=== PATIENT | female | born 1940 | race Caucasian/White ===

== ENCOUNTER 2016-03-30 11:08 | Observation (INO) | payer MEDICARE, BC ==
[~2016-03-30] VITALS: Ht 162.6 cm; Wt 66.6 kg
[~2016-03-30 11:08] MED LIST: AGGRENOX ER 251 CER PO; ALDACTONE 25MG25 M1 PO; ALLEGRA 60MG TA60 MG PO; ANTIVERT 25MG25 MG PO; ASPIRIN E.C. 8181 MG PO; AVALIDE 12.5 MG1 TA1 PO; AVELOX; CALTRATE-600 W600 MG PO; CEFACLOR250 MG; CEFACLOR250 MG PO; CELEBREX 200MG200 MG PO; CLONAZEPAM PO; CORDARONE200 MG/TAB PO; COREG 3.123.125 MG/T PO; COUMADIN 1MG1 MG/TAB PO; COUMADIN 77.5 MG/TAB PO; COZAAR 50MG50 MG/TAB PO; COZAAR100 MG PO; FERROUS SU325 MG/TAB PO; FERROUS SULFATE65 MG PO; FLONASE NASAL S16 GM NS; FOLIC ACID 11 MG/TA1 PO; HALCION0.25 MG PO; HCTZ 25MG TAB25 MG PO; HCTZ 25MG25 MG PO; KLONOPIN 0.5MG0.5 MG PO; KLOR-CON M2020 MEQ PO; LASIX 20MG TABL20 MG PO; METHOTREXA2.5 MG/TAB PO; MUCINEX 60600 MG/TA1 PO; MUCINEX 60600 MG/TAB PO; MULTI VITAMINS1 TAB PO; NEXIUM 20MG20 MG; NEXIUM 40MG40 MG PO; NORCO 325 MG-51 TAB PO; NORMODYNE100 MG PO; PREDNISONE 2.52.5 MG PO; PROBIOTIC PO; REMICADE V100 MG/VIA IV; ROBITUSSIN A-C S1 M1 PO; SYNTHROID0.1 MG/TAB PO; SYNTHROID0.125 MG/T PO; TENORMIN 5050 MG/TAB PO; TRIAMC 0.025 80 TOP; TRIAMCINOLONE A15 G2 TP; XALATAN EYE DROPS OU; XANAX; XANAX 1MG1 MG PO; ZANTAC
[2016-03-30 13:13] LABS: HEMATOCRIT 32.4 % (37.0-47.0); HEMOGLOBIN 10.8 g/dl (12.5-16.0); MEAN CELL VOLUME 99 fl (80.0-100.0); MEAN CORPUSCULAR HEMOGLOBIN 33 pg (27.0-31.0); MEAN CORPUSCULAR HGB CONC 33 g/dl (33.0-37.0); MEAN PLATELET VOLUME 9.6 fl (7.4-10.4); PLATELET COUNT 155 K/mm3 (130-400); RED BLOOD COUNT 3.28 M/mm3 (4.10-5.30); REDCELL DISTRIBUTION WIDTH-CV 15.1 % (11.5-14.5); WHITE BLOOD COUNT 8.2 K/mm3 (4.8-10.8)
[2016-03-30 13:17] VITALS: BP 131/97; PULSE 105; TEMP 97
[2016-03-30 13:19] VITALS: BP 131/97; TEMP 97
[2016-03-30] MEDS ORDERED: LASIX 40MG TABL40 MG PO (13:23)
[2016-03-30] MEDS ORDERED: FENTANYL 25 MCG TD (13:30)
[2016-03-30 13:37] LABS: INR 4.9 (0.8-3.0); PROTHROMBIN TIME 57.4 SECONDS (9.7-12.8)
[2016-03-30] MEDS ORDERED: PREDNISONE10 MG PO (13:37)
[2016-03-30] MEDS ORDERED: VITAMIN D 50,1.25 MG PO (13:38)
[2016-03-30] MEDS ORDERED: COUMADIN 22.5 MG/TAB PO (13:39)
[2016-03-30] MEDS ORDERED: VALTREX 50500 MG/TAB PO (13:40)
[2016-03-30 13:45] LABS: ADD PATHOLOGY DIFF REVIEW NO
[2016-03-30 13:49] LABS: BAND 2 % (0-10); NEUTROPHILS 84 % (42.0-75.2); PLATELET ESTIMATE NORMAL (NORMAL); TOTAL CELLS COUNTED 100
[2016-03-30 15:23] LABS: ADJUSTED CALCIUM 9.4 mg/dL (8.4-10.2); ALBUMIN 3.2 gm/dL (3.5-5.0); BILIRUBIN,TOTAL 1.2 mg/dL (0.0-1.0); C-REACTIVE PROTEIN 1.5 mg/dL (0.0-0.9); CALCIUM 8.8 mg/dL (8.4-10.2); CREATININE, serum 0.92 mg/dL (0.52-1.25); POTASSIUM 4.3 mmol/L (3.4-5.0); TOTAL PROTEIN 6.2 gm/dL (6.4-8.2)
[2016-03-30 15:56] VITALS: BP 115/78; PULSE 113; TEMP 96.9
== END 2016-03-30 18:12 | disposition left against medical advice (07) ==
LOC: MEDICAL 11:08
PROVIDERS: Nurse Practitioner Family
DX: B02.8 Zoster with other complications (principal); Z79.01 Long term (current) use of anticoagulants; S22.089A Unspecified fracture of T11-T12 vertebra, initial encounter for closed fracture; S32.049A Unspecified fracture of fourth lumbar vertebra, initial encounter for closed fracture; W19.XXXA Unspecified fall, initial encounter; Z91.81 History of falling; I50.22 Chronic systolic (congestive) heart failure; I10 Essential (primary) hypertension; M06.9 Rheumatoid arthritis, unspecified; D63.8 Anemia in other chronic diseases classified elsewhere
CPT/HCPCS: 99222-AI; G0378; G0379; J1940; J3370; J7050

== ENCOUNTER 2016-04-08 12:33 | Inpatient (IN) | payer MEDICARE, BC ==
[~2016-04-08] VITALS: Ht 160 cm; Wt 59.6 kg
[~2016-04-08 12:33] MED LIST changes: +COUMADIN 22.5 MG/TAB PO; +FENTANYL 25 MCG TD; +LASIX 40MG TABL40 MG PO; +PREDNISONE10 MG PO; +VALTREX 50500 MG/TAB PO; +VITAMIN D 50,1.25 MG PO
[2016-04-08 13:35] LABS: ADJUSTED CALCIUM 9.7 mg/dL (8.4-10.2); ALBUMIN 3.3 gm/dL (3.5-5.0); BILIRUBIN,TOTAL 1.2 mg/dL (0.0-1.0); CALCIUM 9.1 mg/dL (8.4-10.2); CREATININE, serum 0.83 mg/dL (0.52-1.25); POTASSIUM 4.4 mmol/L (3.4-5.0); TOTAL PROTEIN 5.9 gm/dL (6.4-8.2)
[2016-04-08 13:55] LABS: PROTHROMBIN TIME 39.4 SECONDS (9.7-12.8)
[2016-04-08 13:58] LABS: PARTIAL THROMBOPLASTIN TIME 21.3 SECONDS (26.0-37.0)
[2016-04-08 14:02] LABS: MEAN CELL VOLUME 100 fl (80.0-100.0); MEAN CORPUSCULAR HGB CONC 34 g/dl (33.0-37.0); MEAN PLATELET VOLUME 10.7 fl (7.4-10.4); PLATELET COUNT 97 K/mm3 (130-400); RED BLOOD COUNT 3.06 M/mm3 (4.10-5.30)
[2016-04-08 14:09] LABS: HEMATOCRIT 30.6 % (37.0-47.0); HEMOGLOBIN 10.4 g/dl (12.5-16.0); MEAN CORPUSCULAR HEMOGLOBIN 34 pg (27.0-31.0)
[2016-04-08 14:10] LABS: ADD PATHOLOGY DIFF REVIEW NO
[2016-04-08 14:20] LABS: INR 3.4 (0.8-3.0)
[2016-04-08 14:22] LABS: PH 5 (5-8); SQUAMOUS EPITHELIAL 0-2 /hpf; URINE BACTERIA Occasional /hpf; URINE BILIRUBIN Negative (NEGATIVE); URINE BLOOD 2+ (NEGATIVE); URINE COLOR Yellow; URINE GLUCOSE 3+ (NEGATIVE); URINE KETONE Negative (NEGATIVE); URINE UROBILINOGEN Negative (NEGATIVE)
[2016-04-08 14:26] LABS: URINE APPEARANCE Hazy
[2016-04-08 15:40] LABS: BAND 2 % (0-10); NEUTROPHILS 88 % (42.0-75.2); TOTAL CELLS COUNTED 100
[2016-04-08 15:41] LABS: PLATELET ESTIMATE DECREASED (NORMAL)
[2016-04-08 15:42] LABS: ANISOCYTOSIS 1+
[2016-04-08 15:57] LABS: TROPONIN-I 0.052 ng/mL (0.000-0.034)
[2016-04-08 17:21] VITALS: BP 115/73; PULSE 82; TEMP 97.3
[2016-04-08] MEDS ORDERED: DOXYCYCLINE 10100 MG PO (17:37)
[2016-04-08] MEDS ORDERED: CYMBALTA 30MG30 MG PO (17:39)
[2016-04-08] MEDS ORDERED: VALTREX1 GM PO (17:49)
[2016-04-08] MEDS ORDERED: TRIAMCINOLONE A15 G2 TP (18:08)
[2016-04-08 19:41] VITALS: BP 108/73; PULSE 108; TEMP 97.2
[2016-04-09 00:39] VITALS: BP 113/78; PULSE 85; TEMP 97.1
[2016-04-09 05:05] VITALS: BP 135/80; PULSE 98; TEMP 97.6
[2016-04-09 07:31] VITALS: BP 103/55; PULSE 37; TEMP 97.8
[2016-04-09 07:51] LABS: MEAN CELL VOLUME 99 fl (80.0-100.0); MEAN CORPUSCULAR HGB CONC 34 g/dl (33.0-37.0); MEAN PLATELET VOLUME 10.4 fl (7.4-10.4); PLATELET COUNT 109 K/mm3 (130-400); RED BLOOD COUNT 2.96 M/mm3 (4.10-5.30); WHITE BLOOD COUNT 8.2 K/mm3 (4.8-10.8)
[2016-04-09 07:52] LABS: HEMATOCRIT 29.4 % (37.0-47.0); HEMOGLOBIN 10.1 g/dl (12.5-16.0); MEAN CORPUSCULAR HEMOGLOBIN 34 pg (27.0-31.0)
[2016-04-09 07:53] LABS: ADD PATHOLOGY DIFF REVIEW NO
[2016-04-09 07:55] LABS: PROTHROMBIN TIME 41.5 SECONDS (9.7-12.8)
[2016-04-09 08:02] LABS: INR 3.6 (0.8-3.0)
[2016-04-09 08:10] LABS: ADJUSTED CALCIUM 9.6 mg/dL (8.4-10.2); ALBUMIN 2.9 gm/dL (3.5-5.0); BAND 2 % (0-10); BILIRUBIN,TOTAL 1.1 mg/dL (0.0-1.0); CALCIUM 8.7 mg/dL (8.4-10.2); CREATININE, serum 0.92 mg/dL (0.52-1.25); NEUTROPHILS 89 % (42.0-75.2); PLATELET ESTIMATE DECREASED (NORMAL); POTASSIUM 3.1 mmol/L (3.4-5.0); TOTAL CELLS COUNTED 100; TOTAL PROTEIN 5.4 gm/dL (6.4-8.2)
[2016-04-09 08:23] LABS: TROPONIN-I 0.058 ng/mL (0.000-0.034)
[2016-04-09 12:16] VITALS: BP 99/76; PULSE 91; TEMP 96
[2016-04-09 15:44] VITALS: BP 96/59; PULSE 102; TEMP 97.8
[2016-04-09 19:54] VITALS: BP 124/70; PULSE 113; TEMP 97
[2016-04-10] VITALS (7 sets, daily range): BP systolic 108–122; BP diastolic 53–84; PULSE 57–116; TEMP 96.9–98.6
[2016-04-10 08:10] LABS: PROTHROMBIN TIME 41.9 SECONDS (9.7-12.8)
[2016-04-10 08:11] LABS: INR 3.6 (0.8-3.0)
[2016-04-11 03:06] VITALS: BP 123/67; PULSE 111; TEMP 97.6
[2016-04-11 07:20] VITALS: BP 141/86; PULSE 117; TEMP 98.6
[2016-04-11 07:23] LABS: INR 2.7 (0.8-3.0); PROTHROMBIN TIME 30.9 SECONDS (9.7-12.8)
[2016-04-11 07:35] LABS: CALCIUM 8.4 mg/dL (8.4-10.2); CREATININE, serum 0.79 mg/dL (0.52-1.25); MAGNESIUM 1.8 mg/dL (1.6-2.3); POTASSIUM 3.7 mmol/L (3.4-5.0)
[2016-04-11 11:49] VITALS: BP 127/97; PULSE 116; TEMP 98
[2016-04-11 15:40] VITALS: BP 108/78; PULSE 107; TEMP 99.1
[2016-04-11 19:23] VITALS: BP 117/82; PULSE 92; TEMP 97.1
[2016-04-11 23:01] VITALS: BP 120/73; PULSE 105; TEMP 97.5
[2016-04-12] VITALS (8 sets, daily range): BP systolic 116–144; BP diastolic 45–89; PULSE 65–103; TEMP 96.1–98
[2016-04-12 06:53] LABS: CALCIUM 8.8 mg/dL (8.4-10.2); CREATININE, serum 0.83 mg/dL (0.52-1.25); POTASSIUM 4.2 mmol/L (3.4-5.0)
[2016-04-12 06:59] LABS: PROTHROMBIN TIME 22.5 SECONDS (9.7-12.8)
[2016-04-13 04:33] VITALS: BP 140/66; PULSE 63; TEMP 98
[2016-04-13 07:04] LABS: MEAN CELL VOLUME 98 fl (80.0-100.0); MEAN CORPUSCULAR HGB CONC 35 g/dl (33.0-37.0); MEAN PLATELET VOLUME 10.4 fl (7.4-10.4); PLATELET COUNT 97 K/mm3 (130-400); RED BLOOD COUNT 2.84 M/mm3 (4.10-5.30); REDCELL DISTRIBUTION WIDTH-CV 16.4 % (11.5-14.5); WHITE BLOOD COUNT 8.7 K/mm3 (4.8-10.8)
[2016-04-13 07:14] LABS: CALCIUM 8.2 mg/dL (8.4-10.2); CREATININE, serum 0.72 mg/dL (0.52-1.25); POTASSIUM 3.1 mmol/L (3.4-5.0)
[2016-04-13 07:29] VITALS: BP 134/94; PULSE 130; TEMP 98.3
[2016-04-13 07:29] LABS: HEMATOCRIT 27.8 % (37.0-47.0); HEMOGLOBIN 9.8 g/dl (12.5-16.0); MEAN CORPUSCULAR HEMOGLOBIN 35 pg (27.0-31.0)
[2016-04-13 07:30] LABS: ADD PATHOLOGY DIFF REVIEW NO
[2016-04-13 07:31] LABS: INR 1.7 (0.8-3.0); PROTHROMBIN TIME 19.2 SECONDS (9.7-12.8)
[2016-04-13 08:01] LABS: BAND 5 % (0-10); NEUTROPHILS 88 % (42.0-75.2); PLATELET ESTIMATE DECREASED (NORMAL); TOTAL CELLS COUNTED 100
[2016-04-13 09:06] LABS: MAGNESIUM 1.9 mg/dL (1.6-2.3)
[2016-04-13 11:05] VITALS: BP 120/76; PULSE 120; TEMP 98.1
[2016-04-13 15:33] VITALS: BP 97/56; PULSE 73; TEMP 97.3
[2016-04-13] MEDS ORDERED: MILK OF MA400 MG/52 PO (15:48)
[2016-04-13] MEDS ORDERED: XANAX 1MG1 MG PO (15:49)
[2016-04-13] MEDS ORDERED: HALCION0.25 MG PO (15:49)
[2016-04-13] MEDS ORDERED: SENOKOT S 50 MG1 TAB PO (15:49)
[2016-04-13] MEDS ORDERED: FENTANYL 12MCG TD (15:49)
[2016-04-13] MEDS ORDERED: NORCO 325 MG-51 TAB PO (15:49)
[2016-04-13 20:00] VITALS: BP 104/67; PULSE 98; TEMP 97
[2016-04-14] VITALS (7 sets, daily range): BP systolic 107–140; BP diastolic 60–87; PULSE 91–119; TEMP 96.9–98.5
[2016-04-14 07:25] LABS: MEAN CELL VOLUME 100 fl (80.0-100.0); MEAN CORPUSCULAR HGB CONC 34 g/dl (33.0-37.0); MEAN PLATELET VOLUME 10.7 fl (7.4-10.4); PLATELET COUNT 114 K/mm3 (130-400); RED BLOOD COUNT 3.18 M/mm3 (4.10-5.30); REDCELL DISTRIBUTION WIDTH-CV 17.1 % (11.5-14.5)
[2016-04-14 07:27] LABS: INR 1.8 (0.8-3.0); PROTHROMBIN TIME 20.5 SECONDS (9.7-12.8)
[2016-04-14 07:40] LABS: ADD PATHOLOGY DIFF REVIEW NO; HEMATOCRIT 31.7 % (37.0-47.0); HEMOGLOBIN 10.9 g/dl (12.5-16.0); MEAN CORPUSCULAR HEMOGLOBIN 34 pg (27.0-31.0)
[2016-04-14 07:56] LABS: CALCIUM 8.6 mg/dL (8.4-10.2); CREATININE, serum 0.8 mg/dL (0.52-1.25); POTASSIUM 3.3 mmol/L (3.4-5.0)
[2016-04-14 08:16] LABS: BAND 3 % (0-10); NEUTROPHILS 91 % (42.0-75.2); PLATELET ESTIMATE DECREASED (NORMAL); TOTAL CELLS COUNTED 100
[2016-04-15 06:57] LABS: MEAN CELL VOLUME 101 fl (80.0-100.0); MEAN CORPUSCULAR HGB CONC 34 g/dl (33.0-37.0); MEAN PLATELET VOLUME 10.8 fl (7.4-10.4); PLATELET COUNT 83 K/mm3 (130-400); RED BLOOD COUNT 2.94 M/mm3 (4.10-5.30); REDCELL DISTRIBUTION WIDTH-CV 17.2 % (11.5-14.5)
[2016-04-15 07:02] LABS: HEMATOCRIT 29.7 % (37.0-47.0); HEMOGLOBIN 10.2 g/dl (12.5-16.0); MEAN CORPUSCULAR HEMOGLOBIN 35 pg (27.0-31.0)
[2016-04-15 07:03] LABS: ADD PATHOLOGY DIFF REVIEW NO
[2016-04-15 07:06] LABS: CALCIUM 8.4 mg/dL (8.4-10.2); CREATININE, serum 0.79 mg/dL (0.52-1.25); POTASSIUM 3.1 mmol/L (3.4-5.0)
[2016-04-15 07:09] LABS: INR 1.8 (0.8-3.0)
[2016-04-15 07:33] VITALS: BP 115/76; PULSE 63; TEMP 97.5
[2016-04-15] MEDS ORDERED: CIPRO 500MG TA500 MG PO (08:13)
[2016-04-15] MEDS ORDERED: COUMADIN 2MG2 MG/TAB PO (08:14)
[2016-04-15] MEDS ORDERED: CORDARONE200 MG/TAB PO (08:15)
[2016-04-15] MEDS ORDERED: COREG12.5 MG PO (08:16)
[2016-04-15] MEDS ORDERED: ZESTRIL2.5 MG PO (08:16)
[2016-04-15] MEDS ORDERED: LASIX 40MG TABL40 MG PO (08:17)
[2016-04-15] MEDS ORDERED: KLOR-CON M2020 MEQ PO (08:19)
[2016-04-15 11:35] VITALS: BP 113/74; PULSE 74; TEMP 97.5
[2016-04-15 13:35] LABS: ANISOCYTOSIS 1+; BAND 6 % (0-10); METAMYELOCYTE 1 % (0-0); MYELOCYTE 1 % (0-0); NEUTROPHILS 85 % (42.0-75.2); PLATELET ESTIMATE DECREASED (NORMAL); TOTAL CELLS COUNTED 100
[2016-04-15 16:19] VITALS: BP 113/74; PULSE 74; TEMP 97.5
== END 2016-04-15 17:03 | DRG 292 ==
LOC: COL.ER 12:33 → MEDICAL 16:12
PROVIDERS: Emergency Medicine; Internal Medicine; Internal Medicine Cardiovascular Disease; Nurse Practitioner Family; Physician Assistant
PROC: 5A2204Z Restoration of Cardiac Rhythm, Single (ICD-10-PCS; principal; 2016-04-12)
DX: I11.0 Hypertensive heart disease with heart failure (principal); N39.0 Urinary tract infection, site not specified; I50.23 Acute on chronic systolic (congestive) heart failure; B96.29 Other Escherichia coli [E. coli] as the cause of diseases classified elsewhere; I48.0 Paroxysmal atrial fibrillation; I42.0 Dilated cardiomyopathy; E87.6 Hypokalemia; I08.3 Combined rheumatic disorders of mitral, aortic and tricuspid valves; Z95.0 Presence of cardiac pacemaker; M06.9 Rheumatoid arthritis, unspecified; M79.7 Fibromyalgia; B02.9 Zoster without complications; Z79.01 Long term (current) use of anticoagulants
CPT/HCPCS: 99222-AI; 99232-AI; 99239; G9654; J0696; J1335; J1940; J2704; J3480

== ENCOUNTER → 2016-04-16 | Outpatient (REF) ==
[~2016-04-16] MED LIST changes: +CIPRO 500MG TA500 MG PO; +COREG12.5 MG PO; +COUMADIN 2MG2 MG/TAB PO; +COUMADIN 3MG3 MG/TAB PO; +CYMBALTA 30MG30 MG PO; +DOXYCYCLINE 10100 MG PO; +FENTANYL 12MCG TD; +IMODIUM 2MG CAPS2 MG PO; +MILK OF MA400 MG/52 PO; +SENOKOT S 50 MG1 TAB PO; +VALTREX1 GM PO; +ZESTRIL2.5 MG PO
[2016-04-16 10:24] LABS: INR 1.6 (0.8-3.0); PROTHROMBIN TIME 18.3 SECONDS (9.7-12.8)
[2016-04-16 10:28] LABS: CALCIUM 8.9 mg/dL (8.4-10.2); CREATININE, serum 0.87 mg/dL (0.52-1.25); POTASSIUM 4.9 mmol/L (3.4-5.0)
== END ==
LOC: ZCOL.LAB 10:14
PROVIDERS: Internal Medicine
DX: Z01.89 Encounter for other specified special examinations (principal)

== ENCOUNTER 2016-04-19 09:03 | Inpatient (IN) | payer MEDICARE, BC ==
[~2016-04-19] VITALS: Ht 160 cm; Wt 78.8 kg
[~2016-04-19 09:03] MED LIST changes: -COUMADIN 3MG3 MG/TAB PO; -IMODIUM 2MG CAPS2 MG PO
[2016-04-19 09:38] LABS: HEMOGLOBIN 11.3 g/dl (12.5-16.0); MEAN CELL VOLUME 106 fl (80.0-100.0); MEAN CORPUSCULAR HEMOGLOBIN 34 pg (27.0-31.0); MEAN CORPUSCULAR HGB CONC 33 g/dl (33.0-37.0); MEAN PLATELET VOLUME 11.6 fl (7.4-10.4); REDCELL DISTRIBUTION WIDTH-CV 17.9 % (11.5-14.5); WHITE BLOOD COUNT 9.9 K/mm3 (4.8-10.8)
[2016-04-19 09:39] LABS: HEMATOCRIT 34.8 % (37.0-47.0); PLATELET COUNT 66 K/mm3 (130-400)
[2016-04-19 09:40] LABS: ADD PATHOLOGY DIFF REVIEW NO
[2016-04-19 09:52] LABS: ADJUSTED CALCIUM 9.6 mg/dL (8.4-10.2); ALBUMIN 2.7 gm/dL (3.5-5.0); BILIRUBIN,TOTAL 1.4 mg/dL (0.0-1.0); CALCIUM 8.6 mg/dL (8.4-10.2); CREATININE, serum 1.11 mg/dL (0.52-1.25); POTASSIUM 4.5 mmol/L (3.4-5.0); TOTAL PROTEIN 5.5 gm/dL (6.4-8.2)
[2016-04-19 10:33] LABS: BAND 9 % (0-10); NEUTROPHILS 85 % (42.0-75.2); PLATELET ESTIMATE DECREASED (NORMAL); TOTAL CELLS COUNTED 100
[2016-04-19 11:41] LABS: PROTHROMBIN TIME 39.6 SECONDS (9.7-12.8)
[2016-04-19 11:43] LABS: INR 3.4 (0.8-3.0)
[2016-04-19 12:31] VITALS: BP 106/66; PULSE 114; TEMP 98.5
[2016-04-19] MEDS ORDERED: COUMADIN 3MG3 MG/TAB PO (13:47)
[2016-04-19] MEDS ORDERED: LASIX 40MG TABL40 MG PO (13:56)
[2016-04-19] MEDS ORDERED: IMODIUM 2MG CAPS2 MG PO (13:57)
[2016-04-19 16:45] VITALS: BP 101/71; PULSE 117; TEMP 97.6
[2016-04-19 20:06] VITALS: BP 87/59; PULSE 100; TEMP 97.5
[2016-04-19 23:54] VITALS: BP 96/65; PULSE 98; TEMP 97.4
[2016-04-20] VITALS (104 sets, daily range): BP systolic 73–129; BP diastolic 40–102; PULSE 77–115; TEMP 97–97.7; O2SAT 76–100
[2016-04-20 06:44] LABS: ADJUSTED CALCIUM 10.1 mg/dL (8.4-10.2); ALBUMIN 2.4 gm/dL (3.5-5.0); BILIRUBIN,TOTAL 0.8 mg/dL (0.0-1.0); CALCIUM 8.8 mg/dL (8.4-10.2); CREATININE, serum 1.14 mg/dL (0.52-1.25); POTASSIUM 3.7 mmol/L (3.4-5.0); TOTAL PROTEIN 5.2 gm/dL (6.4-8.2)
[2016-04-20 06:45] LABS: MEAN CELL VOLUME 107 fl (80.0-100.0); MEAN CORPUSCULAR HGB CONC 32 g/dl (33.0-37.0); MEAN PLATELET VOLUME 11.3 fl (7.4-10.4); RED BLOOD COUNT 3.25 M/mm3 (4.10-5.30); WHITE BLOOD COUNT 8.5 K/mm3 (4.8-10.8)
[2016-04-20 06:52] LABS: HEMATOCRIT 34.8 % (37.0-47.0); HEMOGLOBIN 11.2 g/dl (12.5-16.0); MEAN CORPUSCULAR HEMOGLOBIN 34 pg (27.0-31.0); PLATELET COUNT 66 K/mm3 (130-400)
[2016-04-20 06:53] LABS: ADD PATHOLOGY DIFF REVIEW NO
[2016-04-20 06:56] LABS: INR 4.4 (0.8-3.0)
[2016-04-20 07:11] LABS: BAND 25 % (0-10); METAMYELOCYTE 1 % (0-0); NEUTROPHILS 67 % (42.0-75.2); PLATELET ESTIMATE DECREASED (NORMAL); TOTAL CELLS COUNTED 100
[2016-04-20 08:39] LABS: ARTERIAL BLD GAS O2 SATURATION 92.7 % (92-100); ARTERIAL BLD GAS TCO2 CT 30.4; ARTERIAL BLOOD GAS BASE EXCESS 5.1 (-2-2); ARTERIAL BLOOD GAS HCO3 29.2 meq/L (22-26); ARTERIAL BLOOD GAS PHT 7.47 C (7.35-7.45); ARTERIAL BLOOD GAS PO2 65.8 mmHg (80-100); ARTERIAL BLOOD GAS PO2T 65.8 (80-100); ARTERIAL BLOOD GAS pH 7.47 (7.35-7.45); OXYHEMOGLOBIN 92.1 %
[2016-04-20 08:40] LABS: ATS? YES
[2016-04-20 12:17] LABS: INFLUENZA B NEGATIVE
[2016-04-20 12:54] LABS: ARTERIAL BLD GAS TCO2 CT 26.8; ARTERIAL BLOOD GAS BASE EXCESS 2.5 (-2-2); ARTERIAL BLOOD GAS HCO3 25.7 meq/L (22-26); ARTERIAL BLOOD GAS PHT 7.48 C (7.35-7.45); ARTERIAL BLOOD GAS PO2 49.6 mmHg (80-100); ARTERIAL BLOOD GAS PO2T 49.6 (80-100); ARTERIAL BLOOD GAS pH 7.48 (7.35-7.45); OXYHEMOGLOBIN 86.2 %
[2016-04-20 12:55] LABS: ATS? YES
[2016-04-20 15:29] LABS: VENOUS BLOOD GAS BE 0.5 (-4-4); VENOUS BLOOD GAS SAO2 67.1 % (60-80)
[2016-04-20 15:30] LABS: VENOUS BLOOD GAS SITE CENTRAL LINE
[2016-04-20 15:31] LABS: ARTERIAL BLD GAS O2 SATURATION 97.1 % (92-100); ARTERIAL BLD GAS TCO2 CT 24.7; ARTERIAL BLOOD GAS BASE EXCESS 0.1 (-2-2); ARTERIAL BLOOD GAS HCO3 23.7 meq/L (22-26); ARTERIAL BLOOD GAS PHT 7.45 C (7.35-7.45); ARTERIAL BLOOD GAS PO2 101.8 mmHg (80-100); ARTERIAL BLOOD GAS PO2T 101.8 (80-100); ARTERIAL BLOOD GAS pH 7.45 (7.35-7.45); OXYHEMOGLOBIN 96.5 %
[2016-04-20 15:32] LABS: ATS? YES
[2016-04-20 15:33] LABS: ABG VENTILATOR TIDAL VOLUME 500 mL
[2016-04-20 17:05] LABS: PH 6 (5-8); SQUAMOUS EPITHELIAL 0-2 /hpf; URINE APPEARANCE Cloudy; URINE BACTERIA Rare /hpf; URINE BILIRUBIN Negative (NEGATIVE); URINE BLOOD Negative (NEGATIVE); URINE COLOR Yellow; URINE GLUCOSE 1+ (NEGATIVE); URINE KETONE Negative (NEGATIVE); URINE UROBILINOGEN Negative (NEGATIVE)
[2016-04-20 19:35] LABS: VENOUS BLOOD GAS BE 3.8 (-4-4); VENOUS BLOOD GAS SAO2 56.5 % (60-80); VENOUS BLOOD GAS SITE CENTRAL LINE
[2016-04-20 23:40] LABS: VENOUS BLOOD GAS BE 1.8 (-4-4); VENOUS BLOOD GAS SAO2 47.2 % (60-80)
[2016-04-20 23:41] LABS: VENOUS BLOOD GAS SITE CENTRAL LINE
[2016-04-21] VITALS (953 sets, daily range): BP systolic 91–127; BP diastolic 57–79; PULSE 74–96; TEMP 87–97.7; O2SAT 79–100
[2016-04-21 03:09] LABS: VENOUS BLOOD GAS BE -1.7 (-4-4); VENOUS BLOOD GAS SAO2 54.3 % (60-80)
[2016-04-21 03:10] LABS: VENOUS BLOOD GAS SITE CENTRAL LINE
[2016-04-21 03:18] LABS: MEAN CELL VOLUME 105 fl (80.0-100.0); MEAN CORPUSCULAR HGB CONC 33 g/dl (33.0-37.0); MEAN PLATELET VOLUME 11.6 fl (7.4-10.4); RED BLOOD COUNT 2.81 M/mm3 (4.10-5.30); REDCELL DISTRIBUTION WIDTH-CV 18.1 % (11.5-14.5); WHITE BLOOD COUNT 5.2 K/mm3 (4.8-10.8)
[2016-04-21 03:20] LABS: HEMATOCRIT 29.6 % (37.0-47.0); HEMOGLOBIN 9.7 g/dl (12.5-16.0); MEAN CORPUSCULAR HEMOGLOBIN 35 pg (27.0-31.0)
[2016-04-21 03:21] LABS: ADD PATHOLOGY DIFF REVIEW NO; PLATELET COUNT 66 K/mm3 (130-400)
[2016-04-21 03:24] LABS: INR 6.9 (0.8-3.0); PROTHROMBIN TIME 80.9 SECONDS (9.7-12.8)
[2016-04-21 03:30] LABS: ADJUSTED CALCIUM 9.6 mg/dL (8.4-10.2); CREATININE, serum 1.08 mg/dL (0.52-1.25); POTASSIUM 3.4 mmol/L (3.4-5.0); TOTAL PROTEIN 4.6 gm/dL (6.4-8.2)
[2016-04-21 04:35] LABS: MAGNESIUM 2.1 mg/dL (1.6-2.3)
[2016-04-21 04:57] LABS: ALLEN TEST NO; ARTERIAL BLD GAS O2 SATURATION 95.6 % (92-100); ARTERIAL BLD GAS TCO2 CT 25.6; ARTERIAL BLOOD GAS BASE EXCESS 1.4 (-2-2); ARTERIAL BLOOD GAS HCO3 24.5 meq/L (22-26); ARTERIAL BLOOD GAS PHT 7.48 C (7.35-7.45); ARTERIAL BLOOD GAS PO2 81.7 mmHg (80-100); ARTERIAL BLOOD GAS PO2T 81.7 (80-100); ARTERIAL BLOOD GAS pH 7.48 (7.35-7.45); ATS? YES
[2016-04-21 05:20] LABS: ANISOCYTOSIS 2+; BAND 42 % (0-10); NEUTROPHILS 51 % (42.0-75.2); PLATELET ESTIMATE DECREASED (NORMAL); TOTAL CELLS COUNTED 100
[2016-04-21 05:28] LABS: TEAR DROP CELLS 1+
[2016-04-21 06:49] LABS: VENOUS BLOOD GAS BE -0.4 (-4-4); VENOUS BLOOD GAS SAO2 53.9 % (60-80)
[2016-04-21 06:50] LABS: VENOUS BLOOD GAS SITE CENTRAL LINE
[2016-04-21 11:32] LABS: VENOUS BLOOD GAS BE -1.1 (-4-4); VENOUS BLOOD GAS SAO2 59.3 % (60-80); VENOUS BLOOD GAS SITE CENTRAL LINE
[2016-04-21 15:54] LABS: VENOUS BLOOD GAS BE 2.6 (-4-4); VENOUS BLOOD GAS SAO2 67.1 % (60-80)
[2016-04-21 15:57] LABS: VENOUS BLOOD GAS SITE CENTRAL LINE
[2016-04-21 20:12] LABS: VENOUS BLOOD GAS SAO2 76.6 % (60-80)
[2016-04-21 20:13] LABS: VENOUS BLOOD GAS SITE CENTRAL LINE
[2016-04-22] VITALS (1197 sets, daily range): BP systolic 11–136; BP diastolic 62–82; PULSE 59–80; TEMP 96.8–98.5; O2SAT 80–100
[2016-04-22 00:40] LABS: VENOUS BLOOD GAS BE 0.3 (-4-4); VENOUS BLOOD GAS SAO2 62.2 % (60-80); VENOUS BLOOD GAS SITE CENTRAL LINE
[2016-04-22 04:16] LABS: VENOUS BLOOD GAS BE -0.4 (-4-4); VENOUS BLOOD GAS SAO2 58.3 % (60-80); VENOUS BLOOD GAS SITE CENTRAL LINE
[2016-04-22 05:32] LABS: MEAN CELL VOLUME 105 fl (80.0-100.0); MEAN CORPUSCULAR HGB CONC 33 g/dl (33.0-37.0); MEAN PLATELET VOLUME 12.1 fl (7.4-10.4); RED BLOOD COUNT 2.14 M/mm3 (4.10-5.30); REDCELL DISTRIBUTION WIDTH-CV 17.6 % (11.5-14.5); WHITE BLOOD COUNT 3.9 K/mm3 (4.8-10.8)
[2016-04-22 05:37] LABS: MEAN CORPUSCULAR HEMOGLOBIN 35 pg (27.0-31.0)
[2016-04-22 05:38] LABS: HEMATOCRIT 22.5 % (37.0-47.0); PLATELET COUNT 52 K/mm3 (130-400)
[2016-04-22 05:39] LABS: HEMOGLOBIN 7.4 g/dl (12.5-16.0)
[2016-04-22 05:40] LABS: ADD PATHOLOGY DIFF REVIEW NO
[2016-04-22 05:44] LABS: ARTERIAL BLD GAS O2 SATURATION 93.1 % (92-100); ARTERIAL BLOOD GAS BASE EXCESS -0.6 (-2-2); ARTERIAL BLOOD GAS HCO3 22.1 meq/L (22-26); ARTERIAL BLOOD GAS PHT 7.49 C (7.35-7.45); ARTERIAL BLOOD GAS PO2 63.7 mmHg (80-100); ARTERIAL BLOOD GAS PO2T 63.7 (80-100); ARTERIAL BLOOD GAS pH 7.49 (7.35-7.45); OXYHEMOGLOBIN 92.4 %
[2016-04-22 05:45] LABS: ATS? YES
[2016-04-22 05:47] LABS: ADJUSTED CALCIUM 9.6 mg/dL (8.4-10.2); BILIRUBIN,TOTAL 0.8 mg/dL (0.0-1.0); CREATININE, serum 0.84 mg/dL (0.52-1.25); TOTAL PROTEIN 4.5 gm/dL (6.4-8.2)
[2016-04-22 05:54] LABS: POTASSIUM 2.9 mmol/L (3.4-5.0)
[2016-04-22 06:21] LABS: BAND 50 % (0-10); NEUTROPHILS 45 % (42.0-75.2); PLATELET ESTIMATE DECREASED (NORMAL); TOTAL CELLS COUNTED 100
[2016-04-22 06:22] LABS: ANISOCYTOSIS 2+
[2016-04-22 11:03] LABS: INR 1.5 (0.8-3.0); PROTHROMBIN TIME 16.8 SECONDS (9.7-12.8)
[2016-04-22 11:12] LABS: MAGNESIUM 1.9 mg/dL (1.6-2.3); PHOSPHOROUS 2.3 mg/dL (2.5-4.5)
[2016-04-22 14:27] LABS: ARTERIAL BLD GAS O2 SATURATION 94.1 % (92-100); ARTERIAL BLD GAS TCO2 CT 23.8; ARTERIAL BLOOD GAS BASE EXCESS -0.6 (-2-2); ARTERIAL BLOOD GAS HCO3 22.8 meq/L (22-26); ARTERIAL BLOOD GAS PHT 7.47 C (7.35-7.45); ARTERIAL BLOOD GAS PO2 71.4 mmHg (80-100); ARTERIAL BLOOD GAS PO2T 71.4 (80-100); ARTERIAL BLOOD GAS pH 7.47 (7.35-7.45); OXYHEMOGLOBIN 93.1 %
[2016-04-22 14:28] LABS: ABG VENTILATOR TIDAL VOLUME 420 mL; ATS? YES
[2016-04-22 17:46] LABS: VENOUS BLOOD GAS BE -3.9 (-4-4); VENOUS BLOOD GAS SAO2 56.9 % (60-80)
[2016-04-22 17:47] LABS: VENOUS BLOOD GAS SITE CENTRAL LINE
[2016-04-23] VITALS (926 sets, daily range): BP systolic 106–128; BP diastolic 64–87; PULSE 77–95; TEMP 97.6–99.2; O2SAT 91–100
[2016-04-23 04:22] LABS: VENOUS BLOOD GAS BE -2.4 (-4-4); VENOUS BLOOD GAS SAO2 60.7 % (60-80); VENOUS BLOOD GAS SITE CENTRAL LINE
[2016-04-23 05:15] LABS: ARTERIAL BLD GAS O2 SATURATION 90.1 % (92-100); ARTERIAL BLD GAS TCO2 CT 21.8; ARTERIAL BLOOD GAS HCO3 20.9 meq/L (22-26); ARTERIAL BLOOD GAS PHT 7.46 C (7.35-7.45); ARTERIAL BLOOD GAS PO2 54.1 mmHg (80-100); ARTERIAL BLOOD GAS PO2T 54.1 (80-100); ARTERIAL BLOOD GAS pH 7.46 (7.35-7.45); OXYHEMOGLOBIN 89.5 %
[2016-04-23 05:16] LABS: ARTERIAL BLD GAS O2 SATURATION 90.1 % (92-100); ARTERIAL BLD GAS TCO2 CT 21.8; ARTERIAL BLOOD GAS HCO3 20.9 meq/L (22-26); ARTERIAL BLOOD GAS PO2 54.1 mmHg (80-100); ARTERIAL BLOOD GAS pH 7.46 (7.35-7.45)
[2016-04-23 05:17] LABS: ALLEN TEST YES; ALLENS TEST RESULT PASS; ATS? YES
[2016-04-23 05:29] LABS: ALLEN TEST YES; ALLENS TEST RESULT PASS; ATS? YES
[2016-04-23 05:55] LABS: MEAN CORPUSCULAR HGB CONC 34 g/dl (33.0-37.0); MEAN PLATELET VOLUME 11.1 fl (7.4-10.4); RED BLOOD COUNT 3.04 M/mm3 (4.10-5.30); WHITE BLOOD COUNT 5.2 K/mm3 (4.8-10.8)
[2016-04-23 05:57] LABS: HEMATOCRIT 29.5 % (37.0-47.0); MEAN CELL VOLUME 97 fl (80.0-100.0); MEAN CORPUSCULAR HEMOGLOBIN 33 pg (27.0-31.0); PLATELET COUNT 51 K/mm3 (130-400)
[2016-04-23 05:58] LABS: ADD PATHOLOGY DIFF REVIEW NO
[2016-04-23 06:21] LABS: BAND 43 % (0-10); NEUTROPHILS 51 % (42.0-75.2); TOTAL CELLS COUNTED 100
[2016-04-23 06:26] LABS: ADJUSTED CALCIUM 9.2 mg/dL (8.4-10.2); ALBUMIN 1.8 gm/dL (3.5-5.0); BILIRUBIN,TOTAL 0.8 mg/dL (0.0-1.0); CALCIUM 7.4 mg/dL (8.4-10.2); CREATININE, serum 0.73 mg/dL (0.52-1.25); MAGNESIUM 1.6 mg/dL (1.6-2.3); PHOSPHOROUS 2.2 mg/dL (2.5-4.5); TOTAL PROTEIN 4.3 gm/dL (6.4-8.2)
[2016-04-23 06:29] LABS: POTASSIUM 2.3 mmol/L (3.4-5.0)
[2016-04-23 08:35] LABS: VENOUS BLOOD GAS BE -2.8 (-4-4); VENOUS BLOOD GAS SAO2 62.8 % (60-80); VENOUS BLOOD GAS SITE CENTRAL LINE
[2016-04-23 10:40] LABS: INR 1.6 (0.8-3.0); PROTHROMBIN TIME 17.6 SECONDS (9.7-12.8)
[2016-04-23 12:56] LABS: VENOUS BLOOD GAS SAO2 64.1 % (60-80)
[2016-04-23 12:59] LABS: VENOUS BLOOD GAS SITE CENTRAL LINE
[2016-04-23 15:15] LABS: ARTERIAL BLD GAS O2 SATURATION 93.3 % (92-100); ARTERIAL BLD GAS TCO2 CT 18.1; ARTERIAL BLOOD GAS BASE EXCESS -4.9 (-2-2); ARTERIAL BLOOD GAS HCO3 17.3 meq/L (22-26); ARTERIAL BLOOD GAS PHT 7.46 C (7.35-7.45); ARTERIAL BLOOD GAS PO2 64.3 mmHg (80-100); ARTERIAL BLOOD GAS PO2T 64.3 (80-100); ARTERIAL BLOOD GAS pH 7.46 (7.35-7.45); OXYHEMOGLOBIN 92.7 %
[2016-04-23 15:16] LABS: ALLEN TEST NO; ATS? NO
[2016-04-23 16:26] LABS: VENOUS BLOOD GAS BE -1.6 (-4-4); VENOUS BLOOD GAS SAO2 63.4 % (60-80)
[2016-04-23 16:32] LABS: VENOUS BLOOD GAS SITE CENTRAL LINE
[2016-04-23 20:28] LABS: VENOUS BLOOD GAS BE -1.8 (-4-4); VENOUS BLOOD GAS SAO2 63.9 % (60-80)
[2016-04-23 20:30] LABS: VENOUS BLOOD GAS SITE CENTRAL LINE
[2016-04-23 20:57] LABS: PHOSPHOROUS 3.6 mg/dL (2.5-4.5); POTASSIUM 3.8 mmol/L (3.4-5.0)
[2016-04-24] VITALS (574 sets, daily range): BP systolic 93–123; BP diastolic 61–76; PULSE 88–100; TEMP 97–97.9; O2SAT 64–99
[2016-04-24 00:17] LABS: VENOUS BLOOD GAS BE -6.2 (-4-4); VENOUS BLOOD GAS SAO2 60.5 % (60-80)
[2016-04-24 00:18] LABS: VENOUS BLOOD GAS SITE CENTRAL LINE
[2016-04-24 04:20] LABS: VENOUS BLOOD GAS BE -5.4 (-4-4)
[2016-04-24 04:21] LABS: VENOUS BLOOD GAS SITE CENTRAL LINE
[2016-04-24 05:13] LABS: ARTERIAL BLD GAS O2 SATURATION 88.5 % (92-100); ARTERIAL BLD GAS TCO2 CT 19.6; ARTERIAL BLOOD GAS BASE EXCESS -4.2 (-2-2); ARTERIAL BLOOD GAS HCO3 18.7 meq/L (22-26); ARTERIAL BLOOD GAS pH 7.44 (7.35-7.45)
[2016-04-24 05:14] LABS: ALLEN TEST NO; ATS? YES
[2016-04-24 06:01] LABS: MEAN CELL VOLUME 97 fl (80.0-100.0); MEAN CORPUSCULAR HGB CONC 34 g/dl (33.0-37.0); MEAN PLATELET VOLUME 11.8 fl (7.4-10.4); RED BLOOD COUNT 3.41 M/mm3 (4.10-5.30); REDCELL DISTRIBUTION WIDTH-CV 20.1 % (11.5-14.5); WHITE BLOOD COUNT 5.1 K/mm3 (4.8-10.8)
[2016-04-24 06:10] LABS: ADD PATHOLOGY DIFF REVIEW NO; HEMATOCRIT 33.1 % (37.0-47.0); HEMOGLOBIN 11.1 g/dl (12.5-16.0); MEAN CORPUSCULAR HEMOGLOBIN 33 pg (27.0-31.0); PLATELET COUNT 62 K/mm3 (130-400)
[2016-04-24 06:15] LABS: INR 1.8 (0.8-3.0); PROTHROMBIN TIME 20.4 SECONDS (9.7-12.8)
[2016-04-24 06:18] LABS: PARTIAL THROMBOPLASTIN TIME 38.8 SECONDS (26.0-37.0)
[2016-04-24 06:19] LABS: ADJUSTED CALCIUM 9.2 mg/dL (8.4-10.2); ALBUMIN 2.1 gm/dL (3.5-5.0); BILIRUBIN,TOTAL 0.8 mg/dL (0.0-1.0); CALCIUM 7.7 mg/dL (8.4-10.2); CREATININE, serum 0.82 mg/dL (0.52-1.25); MAGNESIUM 2.1 mg/dL (1.6-2.3); PHOSPHOROUS 2.9 mg/dL (2.5-4.5); TOTAL PROTEIN 4.6 gm/dL (6.4-8.2)
[2016-04-24 07:16] LABS: BAND 40 % (0-10); METAMYELOCYTE 2 % (0-0); NEUTROPHILS 54 % (42.0-75.2); PLATELET ESTIMATE DECREASED (NORMAL); TOTAL CELLS COUNTED 100; TOXIC GRANULATION PRESENT
[2016-04-24 07:17] LABS: ANISOCYTOSIS 2+
[2016-04-24 11:53] LABS: ARTERIAL BLD GAS O2 SATURATION 89.1 % (92-100); ARTERIAL BLD GAS TCO2 CT 22.8; ARTERIAL BLOOD GAS BASE EXCESS -8.9 (-2-2); ARTERIAL BLOOD GAS HCO3 20.9 meq/L (22-26); ARTERIAL BLOOD GAS PO2 69.5 mmHg (80-100); ARTERIAL BLOOD GAS PO2T 69.5 (80-100); OXYHEMOGLOBIN 88.4 %
[2016-04-24 11:55] LABS: ARTERIAL BLOOD GAS PHT 7.14 C (7.35-7.45); ARTERIAL BLOOD GAS pH 7.14 (7.35-7.45)
[2016-04-24 11:56] LABS: ATS? YES
== END 2016-04-24 13:10 | disposition short-term general hospital (02) | DRG 163 ==
LOC: COL.ER 09:03 → MEDICAL 10:53 → IMCU 04-20 12:52 → ICU 04-20 16:06
PROVIDERS: Emergency Medicine; Family Medicine; Internal Medicine; Internal Medicine Pulmonary Disease; Nurse Practitioner Family
PROC: 0BH17EZ Insertion of Endotracheal Airway into Trachea, Via Natural or Artificial Opening (ICD-10-PCS; principal; 2016-04-20)
PROC: 5A1945Z Respiratory Ventilation, 24-96 Consecutive Hours (ICD-10-PCS; 2016-04-20)
PROC: 0BC68ZZ Extirpation of Matter from Right Lower Lobe Bronchus, Via Natural or Artificial Opening Endoscopic (ICD-10-PCS; 2016-04-20)
PROC: 5A2204Z Restoration of Cardiac Rhythm, Single (ICD-10-PCS; 2016-04-20)
PROC: 0B958ZZ Drainage of Right Middle Lobe Bronchus, Via Natural or Artificial Opening Endoscopic (ICD-10-PCS; 2016-04-23)
PROC: 0B968ZZ Drainage of Right Lower Lobe Bronchus, Via Natural or Artificial Opening Endoscopic (ICD-10-PCS; 2016-04-23)
PROC: 0B988ZZ Drainage of Left Upper Lobe Bronchus, Via Natural or Artificial Opening Endoscopic (ICD-10-PCS; 2016-04-23)
PROC: 0B9B8ZZ Drainage of Left Lower Lobe Bronchus, Via Natural or Artificial Opening Endoscopic (ICD-10-PCS; 2016-04-23)
DX: J96.21 Acute and chronic respiratory failure with hypoxia (principal); J18.9 Pneumonia, unspecified organism; A41.9 Sepsis, unspecified organism; B37.0 Candidal stomatitis; I42.0 Dilated cardiomyopathy; D61.818 Other pancytopenia; N39.0 Urinary tract infection, site not specified; I50.42 Chronic combined systolic (congestive) and diastolic (congestive) heart failure; I48.0 Paroxysmal atrial fibrillation; Z95.0 Presence of cardiac pacemaker; Z79.01 Long term (current) use of anticoagulants; M79.7 Fibromyalgia; I11.0 Hypertensive heart disease with heart failure; M06.9 Rheumatoid arthritis, unspecified; Z87.891 Personal history of nicotine dependence; D69.6 Thrombocytopenia, unspecified; R73.9 Hyperglycemia, unspecified
CPT/HCPCS: 99222-AI; 99233-AI; 99239; A4315; C1751; J0133; J0282; J0330; J0692; J1450; J1644; J1650; J1815; J1940; J1956; J2250; J2543; J2704; J2930; J3010; J3370; J3430; J3475; J3480; J7030; J7040; J7050; J7060; P9016; P9047